=== PATIENT | female | born 1980 | race African-American/Black ===

== ENCOUNTER 2024-04-25 00:12 | Emergency (ER) | payer SELFPAY ==
[2024-04-25 00:38] VITALS: BP 141/76; PULSE 95; RESP 19; TEMP 99.3; BMI 44.6
== END 2024-04-25 02:23 | disposition home or self-care (01) ==
LOC: JER 00:12
DX: U07.1 COVID-19 (principal); R05.9 Cough, unspecified; R09.81 Nasal congestion
CPT/HCPCS: 0241U-QW; 99283-25